=== PATIENT | female | born 1955 | race Caucasian/White ===

== ENCOUNTER 2022-09-27 21:41 | Emergency (ER) | payer MEDICARE, SELFPAY ==
[2022-09-27 21:44] VITALS: BP 154/91; PULSE 82; RESP 16; TEMP 36; O2SAT 94; BMI 29.3
[2022-09-27] MEDS: TETANUS/DIPHTH/PERTUSSIS 0.5 ML SYRINGE IM (22:51)
[2022-09-27] MEDS: LIDOCAINE 1% MDV 4 ML INJECTION (23:20)
--- NOTE | 2022-09-28 00:21 | ED.GENADULT ---
HPI - General Adult General Date Seen: 09/27/22 Chief complaint: Extremity Pain/Injury, Upper Stated complaint: Cut finger left side Time Seen by Provider: 09/27/22 22:21 History of Present Illness HPI narrative: This is a pleasant 67-year-old female with a history of fibromyalgia, but no history of diabetes or immunosuppression who presents to the ER today for laceration involving the finger pad on her right hand, ring finger. The injury occurred this evening at home just prior to arrival. She was preparing a meal in her kitchen for some other people that she would take them tomorrow when she accidentally cut the finger pad of her right ring finger on the sharp edge of a potato cutter. She suffered a linear laceration running diagonally across the finger pad. It did bleed briskly but bleeding was controlled by direct pressure. The laceration is not involve the fingernail plate or the D IP joint. No other injuries. She is not up-to-date on her tetanus shot. No associated numbness or tingling in her finger. Related Data Home Medications Medication Instructions Recorded Confirmed lorazepam 0.5 mg tablet 0.5 mg PO Q6H PRN anxiety 09/27/22 09/27/22 omeprazole 20 mg capsule,delayed 20 mg PO DAILY 09/27/22 09/27/22 release trazodone 50 mg tablet 50 mg PO QPM 09/27/22 09/27/22 Allergies Allergy/AdvReac Type Severity Reaction Status Date / Time caffeine Allergy Mild Anxiety Verified 09/27/22 21:49 hydrocodone Allergy Mild Itchiness Verified 09/27/22 21:50 hydromorphone [From Dilaudid] Allergy Mild Itchiness Verified 09/27/22 21:50 oxycodone Allergy Mild Itchiness Verified 09/27/22 21:50 metal Allergy Mild Rash Uncoded 09/27/22 21:49 PFSH PFSH Social History Smoking Status: Heavy tobacco smoker What tobacco products do you use: cigarettes Smoking packs per day: 0.5 Smoking cigarettes per day: 10.0 Years smoked: 50 Smoking pack-years: 25.00 Do you use any of these nicotine containing products: None Second hand tobacco smoke exposure: No How often do you have a drink containing alcohol: never AUDIT-C Alcohol total score: 0 Non-prescribed substance use: denies use service: No Exam Narrative: Exam Narrative: Constitutional: Appears well-developed and well-nourished. Alert. Conversant. Non toxic. Watching TV. HENT: Head: Atraumatic. Nose: Nose normal. Mouth/Throat: Oral mucosa is clear and moist. no trismus. Pharynx normal. Tonsils symmetric. No tonsillar enlargement, erythema, or exudate. Eyes: Conjunctivae normal. EOM normal. Pupils equal, round, and reactive to light. No scleral icterus. Neck: Normal range of motion. Neck supple. No tracheal deviation present. Cardiovascular: Normal rate, regular rhythm. No active bleeding. Normal distal cap refill. Pulmonary/Chest: Effort normal. No stridor. No respiratory distress. Musculoskeletal: On injuries except for her right hand, 4th digit. There is a 1.5 cm linear laceration running diagonally across the finger pad. The wound edge does gape about 1-2 mm in laceration does penetrate down into the soft tissue of the finger. No visible foreign body. No active bleeding. The wound does not involve the PIP joint or the nail bed. Normal flexion and extension of the the IP, PIP, MCP. Intact digital nerve sensory function. Brisk distal cap refill. Neurological: Alert and oriented to person, place, and time. Normal strength. CN II-VII intact. No sensory deficit. GCS eye subscore is 4. GCS verbal subscore is 5. GCS motor subscore is 6. Normal coordination Skin: Skin is warm and dry. No rash noted. No pallor. Normal capillary refill. Psychiatric: Normal mood. Normal affect. Const: Vital Signs, click to edit/add: Vital Signs - 24 hr 09/27/22 21:44 Temperature 96.8 F L Pulse Rate [Pulse Oximeter] 82 Respiratory Rate 16 Blood Pressure [Le ft Upper Arm] 154/91 H Pulse Oximetry 94 Oxygen Delivery Me thod Room Air Course Vital Signs Vital signs: Initial Vital Signs Temperature 96.8 F L 09/27/22 21:44 Temperature Source Temporal Artery Scan 09/27/22 21:44 Pulse Rate 82 09/27/22 21:44 Respiratory Rate 16 09/27/22 21:44 Blood Pressure 154/91 H 09/27/22 21:44 Blood Pressure Mean 112 H 09/27/22 21:44 Blood Pressure Position Sitting 09/27/22 21:44 Pulse Oximetry 94 09/27/22 21:44 Oxygen Delivery Method Room Air 09/27/22 21:44 Vital Signs Temperature 96.8 F L 09/27/22 21:44 Pulse Rate 82 09/27/22 21:44 Respiratory Rate 16 09/27/22 21:44 Blood Pressure 154/91 H 09/27/22 21:44 Pulse Oximetry 94 09/27/22 21:44 Oxygen Delivery Method Room Air 09/27/22 21:44 Temperature 96.8 F L 09/27/22 21:44 Pulse Rate 82 09/27/22 21:44 Respiratory Rate 16 09/27/22 21:44 Blood Pressure 154/91 H 09/27/22 21:44 Pulse Oximetry 94 09/27/22 21:44 Oxygen Delivery Method Room Air 09/27/22 21:44 Medical Decision Making MDM Narrative Medical decision making narrative: Findings and exam are consistent with an uncomplicated laceration which was repaired as noted above. There is no evidence at this time to suggest any associated fracture or foreign body. There is no evidence to suggest tendon or arterial injury and patient is neurologically in tact. The patient is to follow up for suture removal as instructed in 7-10 days. Indications to seek urgent reevaluation and signs of infection (including but not limited to increasing pain, redness, swelling, fevers, and drainage) were reviewed. Tetanus is updated tonight. This is a clean and non-contaminated wound in which prophylactic antibiotics are not indicated. An understanding of the discharge instructions and need for follow up were verbally confirmed. Discharge Plan Discharge Clinical Impression: Finger laceration Patient Disposition: Home, Self-Care Condition: Stable Instructions: Finger Laceration (ED) Additional Instructions: Please come back to the ER right away if you have any concerns, especially signs of infection such as redness, swelling of your finger, pus draining from the wound. Please try to keep the wound covered with dressing and antibiotic ointment and keep your finger dry, if possible. Wash the wound once per day gently with warm, clean water. Pat the wound dry, reapply antibiotic ointment dressing. Please have the stitches removed in 7-10 days. Prescriptions: No Action trazodone 50 mg tablet 50 mg PO QPM lorazepam 0.5 mg tablet 0.5 mg PO Q6H PRN (Reason: anxiety) omeprazole 20 mg capsule,delayed release(DR/EC) 20 mg PO DAILY Follow Up/Referrals: Ludy Salazar MD [Primary Care Provider] - Stand Alone Forms: [facility] Info Instructions Procedures Laceration Right hand, 4th digit, finger pad: Pre procedure diagnosis: Laceration, finger Site: hand Side (If applicable): right Size (cm): 1.5 Description: linear Depth: simple, single layer Local Anesthetic: lidocaine 1% Amount of anesthesia used (mL): 4 (Digital block using a volar approach.) Pre-repair: wound explored and deep structures intact Skin layer closed with: nylon Number of sutures: 3 Technique: simple, interrupted
== END 2022-09-27 23:28 | disposition home or self-care (01) ==
LOC: ED 23:26
PROVIDERS: Emergency Provider Emergency Medicine; PCP Family Medicine
DX: S61.214A Laceration without foreign body of right ring finger without damage to nail, initial encounter (principal); W26.8XXA Contact with other sharp object(s), not elsewhere classified, initial encounter
CPT/HCPCS: 12001; 90471; 90715; 99283; 99284

== ENCOUNTER 2024-01-20 10:10 | Emergency (ER) | payer MEDICARE, SELFPAY ==
[2024-01-20 10:18] VITALS: BP 131/82; PULSE 81; RESP 16; TEMP 36.8; O2SAT 95; BMI 31.2
--- NOTE | 2024-01-20 10:33 | CRLHL7_ITS ---
For Patients: As a result of the Century Cures Act, medical imaging exams and procedure reports are released immediately into your electronic medical record. You may view this report before your referring provider. If you have questions, please contact your health care provider. INDICATION: Lower abdominal pain, rectal pain TECHNIQUE: CT abdomen and pelvis acquired with 80 cc Isovue 370 IV contrast. COMPARISON: CT abdomen pelvis 12/04/2020. FINDINGS: Lower chest: Calcification of the LAD and RCA. Liver: Unremarkable. Gallbladder and bile ducts: Cholecystectomy. No biliary ductal dilation. Pancreas: Unremarkable. Spleen: Unremarkable. Adrenal glands: Unremarkable. Kidneys: Left renal cyst GI tract: Diverticulosis of the sigmoid colon with significant bowel wall thickening, surrounding trace free fluid and soft tissue stranding. No evidence of extraluminal gas or fluid collection. Sequela of hiatal hernia repair. Normal appendix. Vasculature: Abdominal aorta is normal in caliber. Moderate atherosclerosis of the aorta and branch vessels. Retroaortic left renal vein. Mesenteric arteries are patent. Lymph nodes: No lymphadenopathy. Peritoneum/Abdominal Wall: Trace pelvic free fluid. No pneumoperitoneum. Small fat containing inguinal hernias. Pelvis: Unremarkable. Incompletely distended bladder. Bones: Mild degenerative disease of the spine. Dextrocurvature of the lumbar spine. Mild degenerative disease of the hips. IMPRESSION: Acute uncomplicated sigmoid diverticulitis. Trace free fluid in the pelvis without evidence of organized fluid collection. Please note that all CT scans at this facility use dose modulation, iterative reconstruction, and/or weight-based dosing when appropriate to reduce radiation dose to as low as reasonably achievable. Dictated by Laurie Freeman MD @ 01/20/2024 12:12:09 PM (Electronically Signed)
--- NOTE | 2024-01-20 10:38 | ED.ABDPAIN ---
HPI - Abdominal Pain General Chief Complaint: Abdominal Pain Stated Complaint: significant stomach pains Time Seen by Provider: 01/20/24 10:19 History of Present Illness HPI narrative: Patient is a 68-year-old woman who comes in today with worsening of her chronic abdominal pain. She has history of irritable bowel syndrome. She is treated for peritonsillar abscess several weeks ago and had allergic reaction with rash to amoxicillin. She completed therapy for her peritonsillar abscess and no longer has any head neck complaints. No chest pain no shortness of breath no nausea no vomiting. She does have some loose stools but no blood in her stool. The pain is severe and located in the lower abdomen below the umbilicus. There is no radiculopathy. She has had no sick exposures and no recent travel. Related Data Home Medications ?Medication ?Instructions ?Recorded ?Confirmed lorazepam 0.5 mg tablet 0.5 mg PO Q6H PRN anxiety 09/27/22 12/30/23 omeprazole 20 mg capsule,delayed 20 mg PO DAILY 09/27/22 12/30/23 release trazodone 50 mg tablet 50 mg PO QPM 09/27/22 12/30/23 Allergies Allergy/AdvReac Type Severity Reaction Status Date / Time Penicillins Allergy Intermediate Hives Verified 01/20/24 11:16 caffeine Allergy Mild Anxiety Verified 01/20/24 11:16 hydrocodone Allergy Mild Itchiness Verified 01/20/24 11:16 hydromorphone (From Dilaudid) Allergy Mild Itchiness Verified 01/20/24 11:16 oxycodone Allergy Mild Itchiness Verified 01/20/24 11:16 metal Allergy Mild Rash Uncoded 01/20/24 11:16 insect bites Allergy Uncoded 01/20/24 11:16 Review of Systems Status of ROS Reports: 10 or more systems reviewed and unremarkable except as noted in History and below [facility] Medical History Allergic reaction to penicillin ?T36.0X5A - Adverse effect of penicillins, initial encounter (ICD-10) Social History Smoking Status: Heavy tobacco smoker What tobacco products do you use: cigarettes Smoking packs per day: 0.5 Smoking cigarettes per day: 10.0 Years smoked: 50 Smoking pack-years: 25.00 Do you use any of these nicotine containing products: None Second hand tobacco smoke exposure: No How often do you have a drink containing alcohol: never AUDIT-C Alcohol total score: 0 Non-prescribed substance use: denies use service: No Exam Narrative: Exam Narrative: EXAM GENERAL: Patient appears comfortable and well. EYES: No scleral icterus. LYMPH: No supraclavicular or cervical lymphadenopathy. SKIN: Visible skin seen during exam normal or with benign process only. EXT: No dependent lower extremity pedal edema. HEART: Regular rate and rhythm with no murmurs, rubs, or gallops. LUNGS: Clear to auscultation bilaterally with no crackles or wheezes. ABD: Soft, non tender, non distended. PSYCH: Good eye contact, speech is not pressured. Const: Vital Signs, click to edit/add: Vital Signs - 24 hr 01/20/24 10:18 Temperature 98.3 F Pulse Rate [Pulse Oximeter] 81 Respiratory Rate 16 Blood Pressure [Ri ght Upper Arm] 131/82 Pulse Oximetry 95 Oxygen Delivery Me thod Room Air Course Course ED Course: Patient seen and examined. CBC comprehensive metabolic panel lipase UA CT abdomen pelvis pending. Vital Signs Vital signs: Initial Vital Signs Temperature 98.3 F 01/20/24 10:18 Temperature Source Temporal Artery Scan 01/20/24 10:18 Pulse Rate 81 01/20/24 10:18 Respiratory Rate 16 01/20/24 10:18 Blood Pressure 131/82 01/20/24 10:18 Blood Pressure Mean 98 01/20/24 10:18 Blood Pressure Position Sitting 01/20/24 10:18 Pulse Oximetry 95 01/20/24 10:18 Oxygen Delivery Method Room Air 01/20/24 10:18 Vital Signs Temperature 98.3 F 01/20/24 10:18 Pulse Rate 81 01/20/24 10:18 Respiratory Rate 16 01/20/24 10:18 Blood Pressure 131/82 01/20/24 10:18 Pulse Oximetry 95 01/20/24 10:18 Oxygen Delivery Method Room Air 01/20/24 10:18 Temperature 98.3 F 01/20/24 10:18 Pulse Rate 81 01/20/24 10:18 Respiratory Rate 16 01/20/24 10:18 Blood Pressure 131/82 01/20/24 10:18 Pulse Oximetry 95 01/20/24 10:18 Oxygen Delivery Method Room Air 01/20/24 10:18 MDM - Abdominal Pain MDM Narrative Medical decision making narrative: Patient is a 68-year-old woman who presents with lower abdominal pain. CT abdomen pelvis shows acute uncomplicated non perforated sigmoid diverticulitis. Patient does not tolerate Augmentin as result I placed her on Cipro Flagyl for 7 days with outpatient follow-up with her primary care physician. She will slowly advance her diet activity as tolerated. She will continue current medications. And she will follow-up with her doctor within the next week. Lab Data Labs: Lab Results 01/20/24 01/20/24 01/20/24 Range/Units 10:43 10:45 10:55 WBC 12.58 H (4.50-11.00) K/uL RBC 4.89 (4.00-5.20) m/uL Hgb 14.3 (12.0-16.0) gm/dL Hct 43.7 (33.0-51.0) % MCV 89 (80-100) fL MCH 29 (26-34) pg MCHC 33 (32-36) gm/dL RDW Coeff of Domitila 12.6 (11.5-15.5) % Plt Count 284 (140-440) K/uL Neut % (Auto) 77.7 H (42.0-72.0) % Lymph % (Auto) 13.2 L (20-44) % [place]mers % (Auto) 8.5 (0.0-11.0) % Eos % (Auto) 0.2 (0.0-7.0) % Baso % (Auto) 0.2 (0.0-3.0) % Neut # (Auto) 9.80 H (1.7-7.0) K/uL Lymph # (Auto) 1.70 (0.90-2.90) K/uL Summers # (Auto) 1.10 H (0.00-0.90) K/UL Eos # (Auto) 0.00 (0.00-0.50) K/uL Baso # (Auto) 0.00 (0.00-0.30) K/uL Abs Immat Gran (auto) 0.00 (0.00-0.30) K/uL Imm/Tot Granulo (auto) 0.2 % Sodium 137 (135-149) mmol/L Potassium 3.5 L (3.6-5.1) mmol/L Chloride 105 (96-114) mmol/L Carbon Dioxide 23 (20-32) mmol/L Anion Gap 9 (7-15) mEq/L BUN 7 (7-30) mg/dL Creatinine 0.7 (0.5-1.5) mg/dL Estimated Creat Clear 41.19 Estimated GFR 95 ml/min Glucose 132 H (60-115) mg/dL Calcium 9.1 (8.4-10.6) mg/dL Total Bilirubin 1.4 (0.1-1.5) mg/dL AST 17 (12-35) U/L ALT 16 (4-35) U/L Alkaline Phosphatase 73 (40-150) U/L Total Protein 7.0 (6.0-8.3) g/dL Albumin 4.2 (3.3-5.0) g/dL Lipase 22 L (23-300) U/L Urine Color Yellow (Yellow) Urine Appearance Clear (Clear) Urine pH 6.5 (5.0-8.5) Ur Specific [place] 1.020 (1.000-1.030) Urine Protein Trace A (Negative) Urine Glucose (UA) Negative (Negative) Urine Ketones Negative (Negative) Urine Blood Trace-intact A (Negative) Urine Nitrite Negative (Negative) Urine Bilirubin Negative (Negative) Urine Urobilinogen 1.0 (0.2-1.0) Ur Leukocyte Esterase Negative (Negative) Urine RBC 0-2 (0-2) Urine WBC 0-2 (0-5) Ur Squamous Epith Cells Moderate A (None-Few) Urine Bacteria Few A (None) POC Creatinine 0.8 (0.6-1.3) mg/dl Discharge Plan Discharge Clinical Impression: Diverticulitis Patient Disposition: Home, Self-Care Condition: Stable Instructions: Diverticulitis (ED) Additional Instructions: Cipro Flagyl Rest Fluids Slowly advanced diet Primary care follow-up this week. Activity Level: No Restrictions Discharge Diet: Regular Prescriptions: No Action trazodone 50 mg tablet 50 mg PO QPM lorazepam 0.5 mg tablet 0.5 mg PO Q6H PRN (Reason: anxiety) omeprazole 20 mg capsule,delayed release(DR/EC) 20 mg PO DAILY Follow Up/Referrals: Ludy Salazar MD [Primary Care Provider] - Stand Alone Forms: [facility] Info Instructions
[2024-01-20 10:51] LABS: Appearance Urine Clear (Clear); Bilirubin Urine Negative (Negative); Blood Urine Trace-intact (Negative); Color Urine Yellow (Yellow); Glucose Urine Negative (Negative); Ketones Urine Negative (Negative); Leukocyte Esterase Urine Negative (Negative); Nitrite Urine Negative (Negative); Protein Urine Trace (Negative); pH Urine 6.5 (5.0-8.5)
[2024-01-20 11:03] LABS: Basophils Percent Auto 0.2 % (0.0-3.0); Eosinophils Percent Auto 0.2 % (0.0-7.0); Hematocrit 43.7 % (33.0-51.0); Hemoglobin* 14.3 gm/dL (12.0-16.0); Immature Granulocytes Pct Auto 0.2 %; Lymphocytes Percent Auto 13.2 % (20-44); Mean Corpuscular HGB Conc 33 gm/dL (32-36); Mean Corpuscular Hemoglobin 29 pg (26-34); Mean Corpuscular Volume 89 fL (80-100); Monocytes Percent Auto 8.5 % (0.0-11.0); Neutrophils Percent Auto 77.7 % (42.0-72.0); Platelet Count* 284 K/uL (140-440); RDW Coefficient of Variation % 12.6 % (11.5-15.5); Red Blood Count 4.89 m/uL (4.00-5.20); White Blood Count* 12.58 K/uL (4.50-11.00)
[2024-01-20 11:08] LABS: Creatinine, Point-of-Care* 0.8 mg/dl (0.6-1.3)
[2024-01-20 11:20] LABS: Albumin* 4.2 g/dL (3.3-5.0)
[2024-01-20 11:21] LABS: Chloride* 105 mmol/L (96-114); Potassium* 3.5 mmol/L (3.6-5.1); Sodium* 137 mmol/L (135-149)
[2024-01-20 11:22] LABS: Bacteria Urine Few; RBC Urine 0-2 (0-2); Squamous Epithelial Cell Urine Moderate (None-Few); WBC Urine 0-2 (0-5)
[2024-01-20 11:23] LABS: Anion Gap 9 mEq/L (7-15); Bilirubin Total* 1.4 mg/dL (0.1-1.5); Carbon Dioxide* 23 mmol/L (20-32); Creatinine* 0.7 mg/dL (0.5-1.5); Est. Creatinine Clearance* 41.19; Estimated Glomerular Filt Rate 95 ml/min
[2024-01-20 11:24] LABS: Alanine Aminotransferase* 16 U/L (4-35); Alkaline Phosphatase* 73 U/L (40-150); Aspartate Amino Transferase* 17 U/L (12-35); Blood Urea Nitrogen* 7 mg/dL (7-30); Calcium* 9.1 mg/dL (8.4-10.6); Glucose* 132 mg/dL (60-115); Lipase* 22 U/L (23-300)
[2024-01-20 12:05] LABS: Slide Review Reflex No
[2024-01-20 12:34] VITALS: BP 136/84; PULSE 76; RESP 16; O2SAT 95
== END 2024-01-20 12:36 | disposition home or self-care (01) ==
PROVIDERS: Emergency Provider Internal Medicine; PCP Family Medicine
DX: K57.92 Diverticulitis of intestine, part unspecified, without perforation or abscess without bleeding (principal)
CPT/HCPCS: 36415; 74177; 80053; 81001; 81003; 82565; 83690; 85025; 87086; 99283; 99284; 99285; Q9967

== ENCOUNTER 2024-01-27 03:58 | Emergency (ER) | payer MEDICARE, SELFPAY ==
[2024-01-27] VITALS (9 sets, daily range): BP systolic 114–124; BP diastolic 73–83; PULSE 67–90; RESP 16; TEMP 35.9–36.7; O2SAT 90–97; BMI 30.2
[2024-01-27] MEDS: METHYLPREDNISOLONE SOD SUCC 62.5 MG/ML (125) 125 MG IVP (04:32)
[2024-01-27] MEDS: 0.9 % SODIUM CHLORIDE 1000 ml 1,000 ML IV (04:32)
--- NOTE | 2024-01-27 04:32 | ED_ITS ---
HPI - General Adult General Date Seen: 01/27/24 Chief complaint: Ear/Nose/Throat Problem Stated complaint: Diverticulitis, L side face swelling Time Seen by Provider: 01/27/24 04:20 Source: patient Mode of arrival: ambulatory Limitations: no limitations History of Present Illness HPI narrative: Patient is a 68-year-old female who presents here for evaluation of left-sided facial swelling, she went to bed approximately at 11:00 a.m. last night, fine, she is being treated for diverticulitis and has done 7 days of Cipro and Flagyl. Denies fevers chills or sweats, this has a little bit of abdominal pain, but no nausea vomiting His previous reaction to penicillin, No shortness of breath, able to speak normally, no fevers chills or sweats, Related Data Home Medications ?Medication ?Instructions ?Recorded ?Confirmed lorazepam 0.5 mg tablet 0.5 mg PO Q6H PRN anxiety 09/27/22 12/30/23 omeprazole 20 mg capsule,delayed 20 mg PO DAILY 09/27/22 12/30/23 release trazodone 50 mg tablet 50 mg PO QPM 09/27/22 12/30/23 Previous Rx's ?Medication ?Instructions ?Recorded epinephrine 0.3 mg/0.3 mL 0.3 ml IM Q5-15M PRN #2 ea 01/27/24 injection, auto-injector prednisone 50 mg tablet 50 mg PO DAILY #7 tabs 01/27/24 Allergies Allergy/AdvReac Type Severity Reaction Status Date / Time Penicillins Allergy Intermediate Hives Verified 01/20/24 11:16 caffeine Allergy Mild Anxiety Verified 01/20/24 11:16 hydrocodone Allergy Mild Itchiness Verified 01/20/24 11:16 hydromorphone (From Dilaudid) Allergy Mild Itchiness Verified 01/20/24 11:16 oxycodone Allergy Mild Itchiness Verified 01/20/24 11:16 metal Allergy Mild Rash Uncoded 01/20/24 11:16 insect bites Allergy Uncoded 01/20/24 11:16 Review of Systems Status of ROS: Reports: 10 or more systems reviewed and unremarkable except as noted in History and below [facility] Medical History Allergic reaction to penicillin ?T36.0X5A - Adverse effect of penicillins, initial encounter (ICD-10) Social History Smoking Status: Heavy tobacco smoker What tobacco products do you use: cigarettes Smoking packs per day: 0.5 Smoking cigarettes per day: 10.0 Years smoked: 50 Smoking pack-years: 25.00 Do you use any of these nicotine containing products: None Second hand tobacco smoke exposure: No How often do you have a drink containing alcohol: never AUDIT-C Alcohol total score: 0 Non-prescribed substance use: denies use service: No Exam Narrative: Exam Narrative: On examination she appears to be in no apparent distress, but there is clearly left lower facial swelling, consistent with angioedema noted. Is on the left lower lip, and left cheek, not involving the upper. Her tongue seems maybe a little bit swollen, but she says it is not. No uvular swelling noted, good air entry is noted bilaterally with no crackles or wheezes, heart sounds are normal, skin reveals no petechiae rashes, and she does not feel warm on the left side of her face. Palpation of her edentulous mouth, reveals no tenderness to the al rodolfo the remaining bridge. Const: Vital Signs, click to edit/add: Vital Signs - 24 hr 01/27/24 04:01 01/27/24 04:21 01/27/24 04:42 Temperature 96.7 F L 98.1 F Pulse Rate Pulse Rate [Left P ulse Oximeter] 90 Respiratory Rate 16 Blood Pressure Blood Pressure [Ri ght Upper Arm] 114/74 Pulse Oximetry 95 97 Oxygen Delivery Me thod Room Air 01/27/24 04:45 01/27/24 04:46 01/27/24 05:00 Temperature Pulse Rate 74 73 75 Pulse Rate [Left P ulse Oximeter] Respiratory Rate Blood Pressure 118/83 Blood Pressure [Ri ght Upper Arm] Pulse Oximetry 90 90 92 Oxygen Delivery Me thod 01/27/24 05:01 01/27/24 05:15 01/27/24 05:30 Temperature Pulse Rate 72 73 67 Pulse Rate [Left P ulse Oximeter] Respiratory Rate Blood Pressure 124/73 Blood Pressure [Ri ght Upper Arm] Pulse Oximetry 93 92 93 Oxygen Delivery Me thod Documenting provider has reviewed patient's vital signs: yes Course Reevaluation(s) Time of Reevaluation #1: 06:43 Reevaluation #1: Patient is recheck, she is quite a bit better, still puffiness to the left lower lip and upper lip. She says her face feels less tight, her cough is gone away. Will continue to watch her for the next hour and +. I think she could probably go home with some antihistamines, along with some prednisone. Time of Reevaluation #2: 07:58 Reevaluation #2: Patient is recheck pre discharge, her facial swelling is markedly improved, speech is normal, she is able open her mouth better, and she has no coughing shortness of breath on examination her vital signs are stable, she has good air entry bilaterally, no evidence of any redness or warmth suggestive of cellulitis. At this point we will lower to go home I have given her prescription and dosed her with prednisone here on top of the Solu-Medrol that I have given her. And I have given her prescription for EpiPen. She feels comfortable going home. We have gone over signs and symptoms which she should re-presented here for. Vital Signs Vital signs: Initial Vital Signs Temperature 96.7 F L 01/27/24 04:01 Temperature Source Temporal Artery Scan 01/27/24 04:01 Pulse Rate 90 01/27/24 04:01 Pulse Rhythm Regular 01/27/24 04:01 Respiratory Rate 16 01/27/24 04:01 Blood Pressure 114/74 01/27/24 04:01 Blood Pressure Mean 87 01/27/24 04:01 Blood Pressure Position Sitting 01/27/24 04:01 Pulse Oximetry 95 01/27/24 04:01 Oxygen Delivery Method Room Air 01/27/24 04:01 Vital Signs Temperature 96.7 F L 01/27/24 04:01 Pulse Rate 90 01/27/24 04:01 Respiratory Rate 16 01/27/24 04:01 Blood Pressure 114/74 01/27/24 04:01 Pulse Oximetry 95 01/27/24 04:01 Oxygen Delivery Method Room Air 01/27/24 04:01 Temperature 98.1 F 01/27/24 04:42 Pulse Rate 67 01/27/24 05:30 Respiratory Rate 16 01/27/24 04:01 Blood Pressure 124/73 01/27/24 05:01 Pulse Oximetry 93 01/27/24 05:30 Oxygen Delivery Method Room Air 01/27/24 04:01 Medications Administered Medications: Discontinued Medications Generic Name Dose Route Start Last Admin Trade Name Lior PRN Reason Stop Dose Admin Sodium Chloride 1,000 mls @ 1,000 mls/hr 01/27/24 04:30 01/27/24 05:51 0.9 % Sodium Chloride 1000 Ml IV 01/27/24 05:29 Infused .Q1H DONALD Infusion Diphenhydramine HCl 25 mg/ 100.5 mls @ 301.5 mls/hr 01/27/24 04:21 01/27/24 04:55 Sodium Chloride IVPB 01/27/24 04:22 Infused ONCE ONE Infusion Methylprednisolone Sodium Succinate 125 mg 01/27/24 04:21 01/27/24 04:32 Methylprednisolone Sod Succ 62.5 Mg/Ml (125) IVP 01/27/24 04:22 125 mg ONCE ONE Administration Prednisone 50 mg 01/27/24 07:05 01/27/24 07:13 Prednisone 10 Mg Tablet PO 01/27/24 07:06 50 mg ONCE ONE Administration Medical Decision Making MDM Narrative Medical decision making narrative: Possibilities include left-sided angioedema, allergic reaction, anaphylaxis, dental abscess, salivary duct stone, cellulitis, I think this is likely unilateral angioedema, I can not palpate a stone in Stensen's duct, and I do not think it is coming from below(lower salivary duct stone). We will try some Solu-Medrol and Benadryl we will watch her, Medical Records Medical records reviewed: Yes I reviewed the patient's medical records Lab Data Lab results reviewed: Yes I reviewed the patient's lab results Lab results narrative: Lab results are reviewed, her CRP is elevated. Remainder of her blood tests look reasonable Labs: Lab Results 01/27/24 Range/Units 04:30 WBC 7.33 (4.50-11.00) K/uL RBC 4.40 (4.00-5.20) m/uL Hgb 13.0 (12.0-16.0) gm/dL Hct 39.9 (33.0-51.0) % MCV 91 (80-100) fL MCH 30 (26-34) pg MCHC 33 (32-36) gm/dL RDW Coeff of Domitila 12.4 (11.5-15.5) % Plt Count 328 (140-440) K/uL Neut % (Auto) 63.6 (42.0-72.0) % Lymph % (Auto) 22.4 (20-44) % [place] % (Auto) 10.9 (0.0-11.0) % Eos % (Auto) 1.5 (0.0-7.0) % Baso % (Auto) 0.4 (0.0-3.0) % Neut # (Auto) 4.66 (1.7-7.0) K/uL Lymph # (Auto) 1.64 (0.90-2.90) K/uL [place] # (Auto) 0.80 (0.00-0.90) K/UL Eos # (Auto) 0.11 (0.00-0.50) K/uL Baso # (Auto) 0.03 (0.00-0.30) K/uL Abs Immat Gran (auto) 0.09 (0.00-0.30) K/uL Imm/Tot Granulo (auto) 1.2 % Sodium 138 (135-149) mmol/L Potassium 3.4 L (3.6-5.1) mmol/L Chloride 106 (96-114) mmol/L Carbon Dioxide 27 (20-32) mmol/L Anion Gap 5 L (7-15) mEq/L BUN 7 (7-30) mg/dL Creatinine 0.9 (0.5-1.5) mg/dL Estimated Creat Clear 41.19 Estimated GFR 70 ml/min Glucose 169 H (60-115) mg/dL Calcium 8.8 (8.4-10.6) mg/dL C-Reactive Protein 13.2 H (0.5-1.0) mg/dL Discharge Plan Discharge Clinical Impression: Angioedema, Diverticulitis Patient Disposition: Home, Self-Care Condition: Improved Instructions: Diverticulitis (ED), Diverticulitis Diet (ED), Angioedema (ED) Additional Instructions: Stop the Flagyl, and Cipro,Please start the prednisone, antihistamine such as Benadryl 25-50 mg q.8h for the next 5 days. Rx given for the epi pen to use if severe reaction. The benadyl will make you tired. Please return here if increasing swelling, problems with talking breathing, or increasing coughing. Call [phone] the symptoms are severe! Follow-up with primary care this week, Recommend staying on a clear liquid diet for your diverticulitis and following up with her colon specialist, to consideration of surgery. Activity Level: Light activity Prescriptions: New prednisone 50 mg tablet 50 mg PO DAILY Qty: 7 0RF epinephrine 0.3 mg/0.3 mL auto-injector 0.3 ml IM Q5-15M PRNQty: 2 0RF Rx Instructions: do not exceed 2 doses per episode No Action trazodone 50 mg tablet 50 mg PO QPM lorazepam 0.5 mg tablet 0.5 mg PO Q6H PRN (Reason: anxiety) omeprazole 20 mg capsule,delayed release(DR/EC) 20 mg PO DAILY Follow Up/Referrals: Ludy Salazar MD [Primary Care Provider] - Stand Alone Forms: [facility] Info Instructions
[2024-01-27 04:33] LABS: Basophils Absolute Auto 0.03 K/uL (0.00-0.30); Basophils Percent Auto 0.4 % (0.0-3.0); Eosinophils Absolute Auto 0.11 K/uL (0.00-0.50); Eosinophils Percent Auto 1.5 % (0.0-7.0); Hematocrit 39.9 % (33.0-51.0); Immature Granulocytes Abs Auto 0.09 K/uL (0.00-0.30); Immature Granulocytes Pct Auto 1.2 %; Lymphocytes Absolute Auto 1.64 K/uL (0.90-2.90); Lymphocytes Percent Auto 22.4 % (20-44); Mean Corpuscular HGB Conc 33 gm/dL (32-36); Mean Corpuscular Hemoglobin 30 pg (26-34); Mean Corpuscular Volume 91 fL (80-100); Monocytes Percent Auto 10.9 % (0.0-11.0); Neutrophils Absolute Auto 4.66 K/uL (1.7-7.0); Neutrophils Percent Auto 63.6 % (42.0-72.0); Platelet Count* 328 K/uL (140-440); RDW Coefficient of Variation % 12.4 % (11.5-15.5); White Blood Count* 7.33 K/uL (4.50-11.00)
[2024-01-27] MEDS: diphenhydrAMINE 25 MG in 0.9 % SODIUM CHLORIDE 100 ml 100 ML 301.5 MG IVPB (04:33)
[2024-01-27 04:38] LABS: Slide Review Reflex No
[2024-01-27 04:42] LABS: Chloride* 106 mmol/L (96-114); Potassium* 3.4 mmol/L (3.6-5.1); Sodium* 138 mmol/L (135-149)
[2024-01-27 04:45] LABS: Creatinine* 0.9 mg/dL (0.5-1.5); Est. Creatinine Clearance* 41.19; Estimated Glomerular Filt Rate 70 ml/min
[2024-01-27 04:46] LABS: Anion Gap 5 mEq/L (7-15); Blood Urea Nitrogen* 7 mg/dL (7-30); Calcium* 8.8 mg/dL (8.4-10.6); Carbon Dioxide* 27 mmol/L (20-32); Glucose* 169 mg/dL (60-115)
[2024-01-27 05:01] LABS: C Reactive Protein* 13.2 mg/dL (0.5-1.0)
--- NOTE | 2024-01-27 06:48 | ED.NURSE ---
pt reports feeling better. Pt swelling to lip is noticeability reduced.
[2024-01-27] MEDS: predniSONE 10 MG TABLET 50 MG PO (07:13)
== END 2024-01-27 08:04 | disposition home or self-care (01) ==
PROVIDERS: Emergency Provider Family Medicine; PCP Family Medicine
DX: T78.3XXA Angioneurotic edema, initial encounter (principal); K52.9 Noninfective gastroenteritis and colitis, unspecified
CPT/HCPCS: 36415; 80048; 85025; 86140; 94761; 96365; 96375; 99284; 99285; J1200; J2919; J7030; J7512